=== PATIENT | male | born 1945 | race Caucasian/White ===

== ENCOUNTER 2016-09-26 14:15 | Emergency (ER) | payer MEDICARE, OTHER ==
[2016-09-26] MEDS ORDERED: FAMOTIDINE IV 20 MG/2 ML VIAL IVP ONE (14:30)
--- NOTE | 2016-09-26 14:37 | Emergency Department Record ---
History of Present Illness - General Chief Complaint: Abdominal Pain Stated Complaint: ABD PAIN Time Seen by Provider: 09/26/16 14:30 Source: Patient Mode of Arrival: Ambulatory - History of Present Illness Initial Comments: The patient states he has a history of bowel surgery. Since that time he always has a low grade stomach pain. Yesterday he began having loose stools, and today has had 5 episodes of diarrhea and an increased level of pain up to 8/10 left of his umbilicus and in his epigastrum. Currently he does not have this pain. He has a history of SBO, diverticulosis, hiatal hernias. MD Complaint: Abdominal pain Onset/Timin -: Days(s) Location: Diffuse, LLQ Severity: Moderate Quality: Aching Consistency: Constant Worsens With: Bowel movement - Related Data Home Medications Medication Instructions Recorded Confirmed Last Taken Carvedilol 25 mg PO BID 08/28/14 09/26/16 1 Day Ago ~09/25/16 Hydromorphone HCl [Hydromorphone 8 mg PO TID 08/28/14 09/26/16 1 Day Ago ER] ~09/25/16 Lisinopril 5 mg PO DAILY 08/28/14 09/26/16 1 Day Ago ~09/25/16 Clonazepam 2 mg PO QHS 10/26/14 09/26/16 1 Day Ago ~09/25/16 Morphine Sulfate [Morphine Sulfate 30 mg PO BID 10/26/14 09/26/16 1 Day Ago ER] ~09/25/16 Temazepam [Restoril] 30 mg PO QHS 10/26/14 09/26/16 1 Day Ago ~09/25/16 Trazodone HCl [Desyrel] 200 mg PO QHS 07/08/15 09/26/16 1 Day Ago ~09/25/16 Apixaban [Eliquis] 5 mg PO BID 09/26/16 09/26/16 1 Day Ago ~09/25/16 Budesonide/Formoterol Fumarate 10.2 gm IH 09/26/16 1 Day Ago [Symbicort 160-4.5 Mcg Inhaler] ~09/25/16 Ipratropium/Albuterol Sulfate 1 - 2 puff IH QID 09/26/16 09/26/16 1 Day Ago [Combivent] ~09/25/16 Allergies Allergy/AdvReac Type Severity Reaction Status Date / Time No Known Drug Allergies Allergy Unknown Verified 09/26/16 14:23 [NO KNOWN DRUG ALLERGIES] Travel Screening - Travel/Exposure Within Last 30 Days Have you traveled within the last 30 days?: No - Travel/Exposure Within Last Year Have you traveled outside the [place] in the last year?: No - Additonal Travel Details Have you been exposed to anyone with a communicable illness?: No - Travel Symptoms Symptom Screening: None Review of Systems Reviewed: No additional complaints except as noted below Constitutional: Reports: As per HPI. Denies: Chills, Fever, Malaise, Night sweats, Weakness, Weight change Eyes: Reports: As per HPI. Denies: Eye discharge, Eye pain, Photophobia, Vision change ENT: Reports: As per HPI. Denies: Congestion, Dental pain, Ear pain, Epistaxis , Hearing loss, Throat pain Respiratory: Reports: As per HPI. Denies: Cough, Dyspnea, Hemoptysis, Stridor, Wheezes Cardiovascular: Reports: As per HPI. Denies: Arrhythmia, Chest pain, Dyspnea on exertion, Edema, Murmurs, Orthopnea, Palpitations, Paroxysmal nocturnal dyspnea, Rheumatic Fever, Syncope Endocrine: Reports: As per HPI. Denies: Fatigue, Heat or cold intolerance, Polydipsia, Polyuria Gastrointestinal: Reports: As per HPI. Denies: Abdominal pain, Constipation, Diarrhea, Hematemesis, Hematochezia, Melena, Nausea, Vomiting Genitourinary: Reports: As per HPI. Denies: Dysuria, Frequency, Hematuria, Incontinence, Retention, Testicular pain, Testicular mass, Urgency Musculoskeletal: Reports: As per HPI. Denies: Arthralgia, Back pain, Gout, Joint swelling, Myalgia, Neck pain Skin: Reports: As per HPI. Denies: Bruising, Change in color, Change in hair/ nails, Lesions, Pruritus, Rash Neurological: Reports: As per HPI. Denies: Abnormal gait, Confusion, Headache, Numbness, Paresthesias, Seizure, Tingling, Tremors, Vertigo, Weakness Psychiatric: Reports: As per HPI. Denies: Anxiety, Auditory hallucinations, Depression, Homicidal thoughts, Suicidal thoughts, Visual hallucinations Hematological/Lymphatic: Reports: As per HPI. Denies: Anemia, Blood Clots, Easy bleeding, Easy bruising, Swollen glands Past Medical History - SOCIAL HISTORY Smoking Status: Former smoker Alcohol Use: None Drug Use: None - RESPIRATORY Hx Respiratory Disorders: Yes Hx Asthma: Yes Hx COPD: Yes - CARDIOVASCULAR Hx Cardio Disorders: Yes Hx Hypertension: Yes - NEURO Hx Neuro Disorders: No - GI Hx GI Disorders: Yes Hx Reflux: Yes Hx Obstructive Bowel: Yes Comment:: emergent surgery 2010 - Hx Genitourinary Disorders: Yes Hx Renal Disease: Yes - ENDOCRINE Hx Endocrine Disorders: No - MUSCULOSKELETAL Hx Musculoskeletal Disorders: Yes Hx Arthritis: Yes Hx Fibromyalgia: Yes - PSYCH Hx Psych Problems: Yes Hx Anxiety: Yes - HEMATOLOGY/ONCOLOGY Hx Hematology/Oncology Disorders: Yes Hx Cancer: Yes (skin) Hx Chemotherapy: Yes Hx Radiation Therapy: No Family Medical History Any Significant Family History?: Yes Hx Heart Disease: Mother Hx HTN: Mother Physical Exam - General General Appearance: Alert, Oriented x3, Cooperative, No acute distress - Head Head exam: Normal inspection - Eye Eye exam: Normal appearance, PERRL Pupils: Normal accommodation - ENT ENT exam: Normal exam, Mucous membranes moist, Normal external ear exam, Normal orophraynx, TM's normal bilaterally Ear exam: Normal external inspection. negative: External canal tenderness Nasal Exam: Normal inspection. negative: Discharge, Sinus tenderness Mouth exam: Normal external inspection, Tongue normal Teeth exam: Normal inspection. negative: Dental caries Throat exam: Normal inspection. negative: Tonsillar erythema, Tonsillar exudate - Neck Neck exam: Normal inspection, Full ROM. negative: Tenderness - Respiratory Respiratory exam: Normal lung sounds bilaterally. negative: Respiratory distress - Cardiovascular Cardiovascular Exam: Regular rate, Normal rhythm, Normal heart sounds - GI/Abdominal GI/Abdominal exam: Soft, Normal bowel sounds, Tenderness (tender epigastrum and left of umbilical region, no rebound no rigidity). negative: Distended, Rebound , Rigid - Rectal Rectal exam: Deferred - exam: Deferred - Extremities Extremities exam: Normal inspection, Full ROM, Normal capillary refill. negative: Tenderness - Back Back exam: Reports: Normal inspection, Full ROM. Denies: Muscle spasm, Rash noted, Tenderness - Neurological Neurological exam: Alert, Normal gait, Oriented X3, Reflexes normal - Psychiatric Psychiatric exam: Normal affect, Normal mood - Skin Skin exam: Dry, Intact, Normal color, Warm Course Vital Signs 09/26/16 14:17 Temperature 97.9 F Pulse Rate 90 Respiratory 18 Rate Blood Pressure 121/87 Pulse Ox 97 - Reevaluation(s) Reevaluation #1: The patient declined medication for pain or nausea. 09/26/16 14:43 Reevaluation #2: Patient returned from Ct scan saying he was in6/10 pain. At his bedside palpation of his abdomen was soft without patient grimacing. He stated he needed to go to the bathroom again, got off the cart easily and ambulated across the department in no apparent distress. He states his PCP is Dr. Ferreira. 09/26/16 16:37 Reevaluation #3: Patient is comfortable without pain medication at this time. He has had 2 yellow diarrhea episodes. Going to CT now. 09/26/16 16:52 Reevaluation #4: Results discussed. Dave mason agreement with plan. Will follow up with PCP Wednesday for recheck. Patient is smiling, conversive and ambulating without distress. 09/26/16 17:57 09/26/16 17:58 Medical Decision Making - Management Options MDM Management: No Additional Work-up Planned - Data Complexity MDM Data: Labs Ordered and/or Reviewed, X-Ray Ordered and/or Reviewed (Abd/ Pelvis CT with contrast: No acute abnnormality. Two small ventral wal hernias unchanged from prior; diverticulosis again seen. Other chronic findings as mentioned.), EKG Ordered and/or Reviewed - Lab Data Result diagrams: 09/26/16 14:30 09/26/16 14:30 - EKG Data -: EKG Interpreted by [facility] EKG: No Acute Changes, Unchanged From Previous (Prior of 01-07-15. NSR,LAD, Nonspecific ST-T changes, borderline 1st degree AVB, no acute changes) Disposition Disposition: Discharge Clinical Impression: Abdominal pain Qualifiers: Abdominal location: left lower quadrant Qualified Code(s): R10.32 - Left lower quadrant pain Disposition: Home, Self-Care Condition: (1) Good Instructions: Abdominal Pain (ED) Additional Instructions: Home. Rest. Continue present meds. Call PCP Wednesday for recheck of abdominal pain in office.
[2016-09-26 14:43] LABS: BASO % 0.3 % (0-6); EOS % 0.8 % (0-6); GRAN % 56.4 % (47-80); HEMATOCRIT 39.7 % (42.0-52.0); HEMOGLOBIN 13.2 gm/dl (14.0-18.0); LYMPH % 33.3 % (16-45); MEAN CELL VOLUME 95.9 fl (81-97); MEAN CORPUSCULAR HEMOGLOBIN 31.8 pg (27-33); MEAN CORPUSCULAR HGB CONC 33.2 g/dl (32-36); MEAN PLATELET VOLUME 9.9 fl (7.4-10.4); MONO % 9.2 % (0-9); PLATELET COUNT 220 K/uL (130-400); RED BLOOD COUNT 4.14 M/uL (4.40-5.70); RED CELL DISTRIBUTION WIDTH 14.2 % (11.5-14.5); WHITE BLOOD COUNT W/O DIFF 7.7 K/uL (4.2-12.2)
[2016-09-26 14:51] LABS: ALBUMIN 4.3 gm/dL (3.5-5.0); ALKALINE PHOSPHATASE 68 U/L (38-126); ALT/SGPT 36 U/L (21-72); ANION GAP 9.8 (7-16); AST/SGOT 44 U/L (17-59); BILIRUBIN,TOTAL 0.55 mg/dL (0.2-1.3); BLOOD UREA NITROGEN 9 mg/dL (9-20); CARBON DIOXIDE 21.2 mmol/L (22-30); CREATININE 1.1 mg/dL (0.66-1.25); EST GLOMERULAR FILTRATION RATE > 60 ml/min; GLUCOSE,RANDOM 92 mg/dL (70-110); LIPASE 30 U/L (23-300); TOTAL PROTEIN 7.8 gm/dL (6.3-8.2)
[2016-09-26 15:06] LABS: TROPONIN I < 0.012 ng/mL (0.00-0.034)
[2016-09-26 15:08] LABS: INR 1.02; PARTIAL THROMBOPLASTIN TIME 32.5 SECONDS (24.5-39.1); PROTHROMBIN TIME (PATIENT) 11.5 SECONDS (9.5-12.1)
[2016-09-26 16:09] LABS: URINE APPEARANCE SL CLOUDY; URINE BILIRUBIN NEGATIVE (NEGATIVE); URINE BLOOD NEGATIVE (NEGATIVE); URINE COLOR YELLOW; URINE GLUCOSE (UA) NEGATIVE (NEGATIVE); URINE KETONE NEGATIVE (NEGATIVE); URINE LEUKOCYTE ESTERASE NEGATIVE (NEGATIVE); URINE NITRITE NEGATIVE (NEGATIVE); URINE PROTEIN NEGATIVE (NEGATIVE); URINE UROBILINOGEN 0.2 E.U./dL (0.20 - 1.00)
--- NOTE | 2016-09-29 14:46 | CT SCAN REPORT ---
EXAM: CT OF THE ABDOMEN AND PELVIS HISTORY: PERIUMBILICAL PAIN. TECHNIQUE: CT of the abdomen and pelvis was performed following intravenous contrast and oral contrast administration. 95 ml of Omnipaque 300 contrast were used for this examination. Comparison: 08/28/14. FINDINGS: The lung bases are unremarkable. The liver and spleen are unremarkable. No pancreatic mass or inflammatory change. The bile ducts are not dilated. There are calcified gallstones seen in the gallbladder. The gallbladder is otherwise unremarkable. No adrenal lesion seen. There is bilateral renal function. No renal mass or hydronephrosis. No aortic aneurysm. No periaortic mass or adenopathy. There are no dilated bowel loops. There is no pelvic mass, abscess, or adenopathy. There is no free air or free fluid identified. A few diverticula are present. No CT evidence for diverticulitis. Two small abdominal wall hernias are again identified each containing a nondilated small bowel loop similar in appearance to the patient's previous study. No fracture or acute osseous abnormality identified. Arthritic changes are seen in the sacroiliac joints. IMPRESSION: 1. NO ACUTE ABDOMINAL OR PELVIC PROCESS IDENTIFIED. 2. TWO SMALL VENTRAL WALL HERNIAS CONTAINING KNUCKLES OF SMALL BOWEL. NO ASSOCIATED INCARCERATION OR OBSTRUCTION. 3. DIVERTICULOSIS WITHOUT CT EVIDENCE FOR DIVERTICULITIS. 4. ARTHRITIC CHANGES IN THE LUMBAR SPINE AND SACROILIAC JOINTS. JOB NUMBER: [id number] [facility]
== END 2016-09-26 18:06 | disposition home or self-care (01) ==
LOC: ER 14:15
DX: R10.31 Right lower quadrant pain (principal); R19.7 Diarrhea, unspecified; I10 Essential (primary) hypertension
CPT/HCPCS: 74177; 80048; 80076; 81003; 83690; 84484; 85025; 85610; 85730; 93005; 93010; 96374; 99284; J3490

== ENCOUNTER 2017-12-01 13:32 | Emergency (ER) | payer MEDICARE ==
[2017-12-01] MEDS ORDERED: 0.9 % SODIUM CHLORIDE 1000ML 1,000 ML IV PRN (13:49)
[2017-12-01] MEDS ORDERED: ASPIRIN 81 MG CHEWABLE TABLET PO ONE (13:49)
--- NOTE | 2017-12-01 13:51 | Emergency Department Record ---
History of Present Illness - General Chief Complaint: Dizziness Stated Complaint: DIZZY,NICHOLE, BACK /HIP PAIN Source: Patient, RN notes reviewed - History of Present Illness Initial Comments: pain in the right hip for 3 months and ran out of dilaudid pills . Also slightly dizzy and some SOB and her with his . - Related Data Previous Rx's Medication Instructions Recorded Naproxen [Naprosyn] 500 mg PO BID #20 tablet 12/01/17 Allergies Allergy/AdvReac Type Severity Reaction Status Date / Time No Known Drug Allergies Allergy Unknown Verified 12/01/17 13:40 [NO KNOWN DRUG ALLERGIES] Review of Systems Reviewed: No additional complaints except as noted below Constitutional: Reports: As per HPI. Denies: Chills, Fever, Malaise, Night sweats, Weakness, Weight change Eyes: Reports: As per HPI. Denies: Eye discharge, Eye pain, Photophobia, Vision change ENT: Reports: As per HPI. Denies: Congestion, Dental pain, Ear pain, Epistaxis , Hearing loss, Throat pain Respiratory: Reports: As per HPI. Denies: Cough, Dyspnea, Hemoptysis, Stridor, Wheezes Cardiovascular: Reports: As per HPI. Denies: Arrhythmia, Chest pain, Dyspnea on exertion, Edema, Murmurs, Orthopnea, Palpitations, Paroxysmal nocturnal dyspnea, Rheumatic Fever, Syncope Endocrine: Reports: As per HPI. Denies: Fatigue, Heat or cold intolerance, Polydipsia, Polyuria Gastrointestinal: Reports: As per HPI. Denies: Abdominal pain, Constipation, Diarrhea, Hematemesis, Hematochezia, Melena, Nausea, Vomiting Genitourinary: Reports: As per HPI. Denies: Dysuria, Frequency, Hematuria, Incontinence, Retention, Testicular pain, Testicular mass, Urgency Musculoskeletal: Reports: As per HPI. Denies: Arthralgia, Back pain, Gout, Joint swelling, Myalgia, Neck pain Skin: Reports: As per HPI. Denies: Bruising, Change in color, Change in hair/ nails, Lesions, Pruritus, Rash Neurological: Reports: As per HPI. Denies: Abnormal gait, Confusion, Headache, Numbness, Paresthesias, Seizure, Tingling, Tremors, Vertigo, Weakness Psychiatric: Reports: As per HPI. Denies: Anxiety, Auditory hallucinations, Depression, Homicidal thoughts, Suicidal thoughts, Visual hallucinations Hematological/Lymphatic: Reports: As per HPI. Denies: Anemia, Blood Clots, Easy bleeding, Easy bruising, Swollen glands Past Medical History - SOCIAL HISTORY Smoking Status: Former smoker Drug Use: None - RESPIRATORY Hx Respiratory Disorders: Yes Hx Asthma: Yes Hx COPD: Yes - CARDIOVASCULAR Hx Cardio Disorders: Yes Hx Hypertension: Yes - NEURO Hx Neuro Disorders: No - GI Hx GI Disorders: Yes Hx Reflux: Yes Hx Obstructive Bowel: Yes Comment:: emergent surgery 2010 - Hx Genitourinary Disorders: Yes Hx Renal Disease: Yes - ENDOCRINE Hx Endocrine Disorders: No - MUSCULOSKELETAL Hx Musculoskeletal Disorders: Yes Hx Arthritis: Yes Hx Fibromyalgia: Yes - PSYCH Hx Psych Problems: Yes Hx Anxiety: Yes - HEMATOLOGY/ONCOLOGY Hx Hematology/Oncology Disorders: Yes Hx Cancer: Yes (skin) Hx Chemotherapy: Yes Hx Radiation Therapy: No Family Medical History Hx Heart Disease: Mother Hx HTN: Mother Physical Exam - General General Appearance: Alert, Oriented x3, Cooperative, No acute distress - Head Head exam: Normal inspection - Eye Eye exam: Normal appearance, PERRL Pupils: Normal accommodation - ENT ENT exam: Normal exam, Mucous membranes moist, Normal external ear exam, Normal orophraynx, TM's normal bilaterally Ear exam: Normal external inspection. negative: External canal tenderness Nasal Exam: Normal inspection. negative: Discharge, Sinus tenderness Mouth exam: Normal external inspection, Tongue normal Teeth exam: Normal inspection. negative: Dental caries Throat exam: Normal inspection. negative: Tonsillar erythema, Tonsillar exudate - Neck Neck exam: Normal inspection, Full ROM. negative: Tenderness - Respiratory Respiratory exam: Normal lung sounds bilaterally. negative: Respiratory distress - Cardiovascular Cardiovascular Exam: Regular rate, Normal rhythm, Normal heart sounds - GI/Abdominal GI/Abdominal exam: Soft, Normal bowel sounds. negative: Tenderness - Rectal Rectal exam: Deferred - exam: Deferred - Extremities Extremities exam: Normal inspection, Full ROM, Normal capillary refill. negative: Tenderness - Back Back exam: Reports: Normal inspection, Full ROM. Denies: Muscle spasm, Rash noted, Tenderness - Neurological Neurological exam: Alert, Normal gait, Oriented X3, Reflexes normal - Psychiatric Psychiatric exam: Normal affect, Normal mood - Skin Skin exam: Dry, Intact, Normal color, Warm Medical Decision Making - Data Complexity MDM Data: Labs Ordered and/or Reviewed (negative labs), X-Ray Ordered and/or Reviewed (Chest xray cardiomegaly and no acute findings), EKG Ordered and/or Reviewed (NSR, no acute changes) - Lab Data Result diagrams: 12/01/17 14:15 12/01/17 14:15 Disposition Clinical Impression: Hip pain, right Lumbar strain Qualifiers: Encounter type: initial encounter Qualified Code(s): S39.012A - Strain of muscle, fascia and tendon of lower back, initial encounter Disposition: Home, Self-Care Condition: (1) Good Instructions: Musculoskeletal Pain (ED) Additional Instructions: heat to the right side and right hip three times a day stop mobic while on naprosyn and than restart mobic after naprosyn is gone. [facility] Prescriptions: Naproxen [Naprosyn] 500 mg PO BID #20 tablet Forms: Patient Portal Access Time of Disposition: 15:41 Quality - Quality Measures Quality Measures: N/A - Blood Pressure Screening Does Patient Have Any of the Following: No Blood Pressure Classification: Pre-Hypertensive BP Reading Systolic Measurement: 129 Diastolic Measurement: 88 Screening for High Blood Pressure: < Pre-Hypertensive BP, F/U Documented > [ [id number]] Pre-Hypertensive Follow-up Interventions: Referral to alternative/primary care provider.
[2017-12-01 14:58] LABS: BASO % 0.7 % (0-6); EOS % 1.3 % (0-6); HEMATOCRIT 39.3 % (42.0-52.0); HEMOGLOBIN 12.8 gm/dl (14.0-18.0); LYMPH % 33.1 % (16-45); MEAN CELL VOLUME 95.6 fl (81-97); MEAN CORPUSCULAR HEMOGLOBIN 31.1 pg (27-33); MEAN CORPUSCULAR HGB CONC 32.6 g/dl (32-36); MEAN PLATELET VOLUME 10.4 fl (7.4-10.4); MONO % 12.9 % (0-9); PLATELET COUNT 237 K/uL (130-400); RED BLOOD COUNT 4.11 M/uL (4.40-5.70); RED CELL DISTRIBUTION WIDTH 13.4 % (11.5-14.5)
[2017-12-01 15:10] LABS: BLOOD UREA NITROGEN 11 mg/dL (8-23)
[2017-12-01 15:11] LABS: CREATININE 1.2 mg/dL (0.7-1.2); EST GLOMERULAR FILTRATION RATE > 60 mL/min
[2017-12-01 15:13] LABS: GLUCOSE,RANDOM 99 mg/dL (74-109); INR 1.1; PARTIAL THROMBOPLASTIN TIME 44.1 SECONDS (24.5-39.1)
[2017-12-01 15:18] LABS: CKMB 1.2 ng/mL (<6.73)
== END 2017-12-01 16:08 | disposition home or self-care (01) ==
LOC: ER 13:32
DX: S39.012A Strain of muscle, fascia and tendon of lower back, initial encounter (principal); M25.551 Pain in right hip; R42 Dizziness and giddiness; R06.02 Shortness of breath; J44.9 Chronic obstructive pulmonary disease, unspecified; I10 Essential (primary) hypertension; Z87.891 Personal history of nicotine dependence; X58.XXXA Exposure to other specified factors, initial encounter
CPT/HCPCS: 71046; 80048; 82553; 84484; 85025; 85379; 85610; 85730; 93005; 93010; 99284

== ENCOUNTER 2018-04-04 17:26 | Emergency (ER) | payer MEDICARE ==
[2018-04-04] MEDS ORDERED: IPRATROPIUM/ALBUTEROL (0.5MG/3MG) NEB INH ONE ×2 (17:53→17:55)
[2018-04-04] MEDS ORDERED: PREDNISONE 20 MG TAB PO ONE (17:54)
--- NOTE | 2018-04-04 18:15 | Emergency Department Record ---
History of Present Illness - General Chief complaint: ENT Stated complaint: NICHOLE SINUS CONGESTION Time Seen by Provider: 04/04/18 17:53 Source: Patient Mode of Arrival: Ambulatory Limitations: No limitations - History of Present Illness Initial comments: Pt to ED with complaint of "congestion and NICHOLE". Pt relates hx of asthma treated with home inhalers. Hx of steroid use. Uses home nasal CPAP at night and at night time his mouth is "so Dry". No fever, no productive cough. No CP. Onset/Timin -: Days(s) Severity: Moderate Severity scale (1-10): 5 Consistency: Intermittent Associated Symptoms: Cough, Fever, Other - Related Data Previous Rx's Medication Instructions Recorded Albuterol Sulfate [Ventolin Hfa] 1 - 2 puff IH .EVERY 4-6 HOURS PRN 04/04/18 7 Days #1 inhaler Azithromycin 250 mg PO DAILY 5 Days #6 tablet 04/04/18 Prednisone [Prednisone 20Mg] 40 mg PO DAILY 4 Days #8 tab 04/04/18 Allergies Allergy/AdvReac Type Severity Reaction Status Date / Time No Known Drug Allergies Allergy Unknown Verified 04/04/18 17:34 [NO KNOWN DRUG ALLERGIES] Travel Screening - Travel/Exposure Within Last 30 Days Have you traveled within the last 30 days?: No Review of Systems Constitutional: Denies: Chills, Fever, Night sweats Eyes: Denies: Eye discharge, Photophobia ENT: Reports: Congestion. Denies: Ear pain Respiratory: Reports: Cough, Wheezes. Denies: Dyspnea, Hemoptysis Cardiovascular: Denies: Arrhythmia, Chest pain, Dyspnea on exertion Endocrine: Denies: Fatigue Gastrointestinal: Denies: Abdominal pain, Constipation, Diarrhea, Vomiting Musculoskeletal: Denies: Arthralgia, Back pain Skin: Denies: Bruising Neurological: Denies: Abnormal gait, Headache, Tingling Psychiatric: Denies: Anxiety Hematological/Lymphatic: Denies: Anemia Past Medical History - SOCIAL HISTORY Smoking Status: Former smoker Alcohol Use: None Drug Use: None - RESPIRATORY Hx Respiratory Disorders: Yes Hx Asthma: Yes Hx COPD: Yes Hx Pneumonia: Yes - CARDIOVASCULAR Hx Cardio Disorders: Yes Hx Hypertension: Yes - NEURO Hx Neuro Disorders: No - GI Hx GI Disorders: Yes Hx Reflux: Yes Hx Obstructive Bowel: Yes Comment:: emergent surgery 2010 - Hx Genitourinary Disorders: Yes Hx Renal Disease: Yes - ENDOCRINE Hx Endocrine Disorders: No Comment:: hereditary blood clotting disorder - MUSCULOSKELETAL Hx Musculoskeletal Disorders: Yes Hx Arthritis: Yes Hx Fibromyalgia: Yes - PSYCH Hx Psych Problems: Yes Hx Anxiety: Yes - HEMATOLOGY/ONCOLOGY Hx Hematology/Oncology Disorders: Yes Hx Cancer: Yes (skin) Hx Chemotherapy: Yes Hx Radiation Therapy: No Family Medical History Any Significant Family History?: Yes Hx Heart Disease: Mother Hx HTN: Mother Physical Exam - General General Appearance: Alert, Oriented x3, Cooperative, No acute distress - Head Head exam: Atraumatic - Eye Eye exam: Normal appearance, PERRL - ENT ENT exam: Normal exam, Mucous membranes moist, Normal external ear exam, Normal orophraynx, TM's normal bilaterally - Neck Neck exam: Normal inspection, Full ROM. negative: Tenderness - Respiratory Respiratory exam: Prolonged expiratory, Wheezes. negative: Rales, Respiratory distress - Cardiovascular Cardiovascular Exam: Regular rate, Normal rhythm, Normal heart sounds - GI/Abdominal GI/Abdominal exam: Soft, Normal bowel sounds. negative: Tenderness - Extremities Extremities exam: Normal inspection. negative: Pedal edema, Tenderness - Back Back exam: Reports: Normal inspection. Denies: Muscle spasm, Paraspinal tenderness - Neurological Neurological exam: Alert, Normal gait, Oriented X3 - Psychiatric Psychiatric exam: Normal affect, Normal mood - Skin Skin exam: Normal color. negative: Rash Course Vital Signs 04/04/18 17:30 Temperature 98.3 F Pulse Rate 142 H Respiratory 16 Rate Blood Pressure 120/78 Pulse Ox 94 L - Reevaluation(s) Reevaluation #1: 04/04/18 18:15 seen on arrival with resp. Neds x 3 and peak flows. Oral steroids. XRay pending. Reevaluation #2: 04/04/18 18:36 Much improved with increased exchange. Home with instructions. Medical Decision Making - Data Complexity MDM Data: X-Ray Ordered and/or Reviewed - Radiology Data Radiology results: Report reviewed, Image reviewed -: Radiology Exam Interpreted by Myself Disposition Disposition: Discharge Clinical Impression: Asthma attack, Upper respiratory infection Disposition: Home, Self-Care Condition: (2) Stable Instructions: Asthma (ED), Upper Respiratory Infection (ED) Additional Instructions: Nebulizer to bedroom. Use inhaler as Instructed. Prescriptions: Albuterol Sulfate [Ventolin Hfa] 1 - 2 puff IH .EVERY 4-6 HOURS PRN 7 Days #1 inhaler PRN Reason: Difficulty In Breathing Azithromycin 250 mg PO DAILY 5 Days #6 tablet Prednisone [Prednisone 20Mg] 40 mg PO DAILY 4 Days #8 tab Forms: Patient Portal Access Time of Disposition: 18:38 Quality - Quality Measures Quality Measures: N/A - Blood Pressure Screening Does Patient Have Any of the Following: No, Active Dx of HTN Blood Pressure Classification: Pre-Hypertensive BP Reading Systolic Measurement: 120 Diastolic Measurement: 78 Screening for High Blood Pressure: Patient Exclusion, Hx of HTN [G9744]
--- NOTE | 2018-04-07 07:43 | RADIOLOGY REPORT ---
EXAM: CHEST, TWO VIEWS HISTORY: COUGH, FEVER, HEADACHE, NAUSEA AND VOMITING. TECHNIQUE: PA and lateral views of the chest were obtained. Comparison: Two view chest 12/01/17. FINDINGS: Stable heart size. Torsion of the aorta as before. No definite acute infiltrate seen. No pleural effusion or pneumothorax evident. Prominent spurring in the mid to lower thoracic spine as before. IMPRESSION: 1. TORSION OF THE AORTA. 2. SPURRING IN THE SPINE. 3. NO ACUTE INFILTRATE EVIDENT. [facility]: [id number] [facility]
== END 2018-04-04 18:55 | disposition home or self-care (01) ==
LOC: ER 17:26
DX: J45.901 Unspecified asthma with (acute) exacerbation (principal); J06.9 Acute upper respiratory infection, unspecified; I10 Essential (primary) hypertension; Z87.891 Personal history of nicotine dependence
CPT/HCPCS: 99283; 99284; 71046; 94640 ×2; 94150; J7512